=== PATIENT | male | born 1980 | race Caucasian/White ===

== ENCOUNTER → 2017-10-02 13:25 | Outpatient (CLI) | payer OTHER, SELFPAY ==
--- NOTE | 2017-10-02 13:31 | XR_ITS ---
XR foot RT min 3V HISTORY: ITS.REASON: right foot ulcer and pain ORDERING PHYSICIAN: LUISA Burrell PATIENT AGE: 37 years COMPARISON: None FINDINGS: There are no previous exams available for comparison. A drain is present along the lateral aspect of the midfoot. There is a nonunited transverse fracture at the base of the fifth metatarsal. There is diffuse subarticular cystic changes with bony hypertrophy and bony debris at the tarsometatarsal junction. Low density changes involve the distal aspect of the navicular. The medial cuneiform is displaced medially and proximally. There is widening of the space between the base of the second metatarsal and first metatarsal with overriding of the second and third metatarsals at the metatarsal tarsal junction. Bony debris is present at the tarsal metatarsal junction. All these findings are consistent with Charcot joint. There is a displaced tarsal bone along the plantar aspect of the foot possibly related to the medial cuneiform displaced inferiorly. Extensive soft tissue swelling is present. A cortical lucency is noted at the first metatarsophalangeal joint. Has the patient had prior surgery at this region?. This may be related to prior surgery or extensive erosive osteoarthritic changes or osteomyelitis. IMPRESSION: The findings overall are consistent with Charcot joint of the mid foot with deformity, dislocation, destruction, and bony debris as well as an old fracture of the base of the fifth metatarsal. There is moderate widening of space between the base of the first and second metatarsal consistent with Lisfranc fracture/dislocation. Erosive osteoarthritis versus osteomyelitis versus postsurgical change at the first metatarsophalangeal junction Correlation with patient's surgical history needed
== END ==
PROVIDERS: PCP Physician Assistant; Visit Provider Physician Assistant
DX: L97.509 Non-pressure chronic ulcer of other part of unspecified foot with unspecified severity (principal); E11.621 Type 2 diabetes mellitus with foot ulcer
CPT/HCPCS: 73630